=== PATIENT | female | born 1990 | race African-American/Black ===

== ENCOUNTER → 2018-07-30 | Outpatient (CLI) | payer OTHER | LOC: FIMAGING 12:13 | PROVIDERS: ATTEND Advanced Practice Midwife | DX: Z34.02 Encounter for supervision of normal first pregnancy, second trimester (principal); Z3A.19 19 weeks gestation of pregnancy ==

== ENCOUNTER → 2018-08-27 | Outpatient (CLI) | payer OTHER | LOC: FIMAGING 13:22 | PROVIDERS: ATTEND Advanced Practice Midwife | DX: O09.292 Supervision of pregnancy with other poor reproductive or obstetric history, second trimester (principal); Z3A.23 23 weeks gestation of pregnancy ==

== ENCOUNTER 2018-12-21 19:28 | Inpatient (IN) | payer OTHER ==
--- NOTE | 2018-12-21 20:02 | PDGENHP ---
History and Physical History and Physical: Care: [facility] HPI: Sharlene Phoenix is a 28yo with IUP@ 40-2 weeks that presents to L&D from [facility] due to arrest of labor. Her labor started this morning around 0500 0700: admitted to @ 0700: /0 0815: 0 1130: C/C/+1 BBOW 1530: AROM- clear /-1. 1830: /-1 and pt desired [place] to [facility] for augmentation and LANCE. EDC: 12/19/2018 which is based on LMP and consistent with Ultrasound at 10 weeks. Her is complicated by: Rubella equivocal, Vitamin D deficiency Review of Systems: Constitutional: Denies any fever, chills, or fatigue HEENT: denies any visual changes, difficulty swallowing, hearing loss Cardiovascular: Denies any chest pain, palpitations, leg swelling Respiratory: denies any cough, wheezing, or shortness of breathe GI: Denies any nausea, vomiting, diarrhea, constipation; reports +abdominal pain with contractions : denies any dysuria, urgency, frequency, vaginal bleeding Musculoskeletal: denies any muscle or bone pain Skin: denies any rashes Neuro: denies any headache, seizures, lightheadedness, dizziness, or loss of consciousness Psychiatric: denies any depression, anxiety, or SI/HI thoughts HISTORY: Previous OB history: G1 Past medical history: migraines, vitamin D deficiency, rubella equivocal Past surgical history: polyp removal with D&C 2016 Social: Denies any alcohol, tobacco, or drug use. Family history: Not relevant Medications: PNV, vitamin D deficiency Allergies (list reaction): NKDA LABS: Rh: O+ ABS: Neg Rubella: equivocal HbsAg: NR HIV: NR VDRL: NR 1hr: 83 GC: Neg Chlamydia: Neg Pap: Normal GBS: negative PHYSICAL EXAM: Constitutional: WN, A&Ox3 HEENT: normocephalic atraumatic, supple Skin: Warm, dry, intact Heart: RRR, no murmur Chest: CTA-B Abdomen: Soft, nontender, gravid SVE: /-1 Extremities: trace edema, negative homans sign Neuro: grossly normal Psych: normal affect assessment: FHT baseline 135+accels, no decels, moderate variability Contractions: toco q 4-6 Assessment: * 28yo with IUP@ 40-2wks * labor- protracted labor * GBS Negative * Cat 1 FHR tracing Plan: * Admit to L&D * IV access/fluids * LANCE per pt request * Agreeable to augmentation with pitocin Today's visit was approximately 30 min, of which >50% of visit 20 min, was spent face to face with pt on direct counseling/coordination of care.
[2018-12-21] MEDS ORDERED: IBUPROFEN 600 MG TAB PO PRN (20:03)
[2018-12-21] MEDS ORDERED: LR 1,000 ML IV PRN (20:03)
[2018-12-21] MEDS ORDERED: MISOPROSTOL 200 MCG TAB PO PRN (20:03)
[2018-12-21] MEDS ORDERED: OXYTOCIN/RINGERS LACTATE 1,000 ML IV PRN (20:03)
[2018-12-21] MEDS ORDERED: OLIVE OIL 118 ML BTL MISC PRN (20:03)
[2018-12-21] MEDS ORDERED: EPSOM SALT 454 GM TP PRN (20:03)
[2018-12-21] MEDS ORDERED: AMMONIA AROMATIC 1 EACH AMP IH PRN (20:03)
[2018-12-21] MEDS ORDERED: LIDOCAINE 1% 300 MG/30 ML SDV SC PRN (20:03)
[2018-12-21] MEDS ORDERED: TERBUTALINE SULFATE 1 MG/ML VIAL IV PRN (20:03)
[2018-12-21 20:18] LABS: PLATELET COUNT 252 10^3/uL (150-400)
[2018-12-21] MEDS ORDERED: fentaNYL 2MCG/ML/BUP 0.1% RTU 100 ML BAG EP ONE (20:54)
[2018-12-21] MEDS ORDERED: TERBUTALINE SULFATE 1 MG/ML VIAL ONE (21:42)
[2018-12-21] MEDS ORDERED: OLIVE OIL 118 ML BTL ONE (21:42)
[2018-12-21] MEDS ORDERED: LIDOCAINE 1% 300 MG/30 ML SDV ONE (21:42)
[2018-12-21] MEDS ORDERED: MISOPROSTOL 200 MCG TAB ONE (21:42)
[2018-12-21] MEDS ORDERED: OXYTOCIN 10 UNIT/ML VIAL ONE (21:42)
[2018-12-21] MEDS ORDERED: AMMONIA AROMATIC 1 EACH AMP IH ONE (21:42)
[2018-12-21] MEDS ORDERED: NALOXONE HCL 0.4 MG/ML INJ IVP PRN (22:08)
[2018-12-21] MEDS ORDERED: ONDANSETRON 4 MG/2 ML VIAL IVP PRN (22:08)
[2018-12-21] MEDS ORDERED: METOCLOPRAMIDE 10 MG/2 ML VIAL IVP PRN (22:08)
[2018-12-21] MEDS ORDERED: PHENYLEPHRINE HCL 100 MCG/ML SYR IVP PRN (22:08)
--- NOTE | 2018-12-21 22:08 | PREANESOB ---
Obstetric Pre-Anesthesia Info - General Info Proposed Procedure: LANCE : 1 Para: 0 KITTY: 12/19/18 Gestational Age: 40 week(s) and 2 day(s) - Info Status: Full Term Monitors: External FHR Pattern: Reassuring - Labor Status Indications for Labor Analgesia: Pain Control Labor Epidural: Proposed Anesthesia Allergies/Adverse Reactions: Allergy/AdvReac Type Severity Reaction Status Date / Time No Known Allergies Allergy Unverified 12/21/18 20:02 Visit Medications: Generic Name Dose Route Start Last Admin Trade Name Freq PRN Reason Stop Dose Admin Ammonia (Aromatic Spirit) 1 each 12/21/18 20:03 Ammonia Aromatic IH 12/31/18 20:02 ONCE PRN Fainting Lactated Ringer's 1,000 mls @ 0 mls/hr 12/21/18 20:03 12/21/18 20:08 Lr IV 12/22/18 20:02 1,000 mls PRN PRN Administration SEE PROTOCOL CONDITIONS Protocol Per Protocol Oxytocin/Lactated Ringer's 1,000 mls @ 999 mls/hr 12/21/18 20:03 Pitocin 20 Units/Lr (Premix) IV PRN PRN Post bleeding Ibuprofen 600 mg 12/21/18 20:03 Motrin PO ONCE PRN post , pain Lidocaine HCl 300 mg 12/21/18 20:03 Lidocaine Hcl 1% SC 06/19/19 20:02 ONCE PRN episiotomy Magnesium Sulfate 454 gm 12/21/18 20:03 Epsom Salt TP 06/19/19 20:02 Q1H PRN perineal discomfort Misoprostol 800 - 1,000 mcg 12/21/18 20:03 Cytotec PO 06/19/19 20:02 ONCE PRN Vaginal Atony/Bleeding Axton Oil 118 ml 12/21/18 20:03 Sweet Oil MISC 06/19/19 20:02 ONCE PRN perineal massage Terbutaline Sulfate 0.25 mg 12/21/18 20:03 Brethine IV 06/19/19 20:02 ONCE PRN Tachysystole Discontinued Medications Generic Name Dose Route Start Last Admin Trade Name Freq PRN Reason Stop Dose Admin Ammonia (Aromatic Spirit) Confirm 12/21/18 21:42 Ammonia Aromatic Administered 12/21/18 21:43 Dose 1 each IH .STK-MED ONE Fentanyl/Bupivacaine HCl Confirm 12/21/18 20:54 Fentanyl/Bupivacaine/Ns 2 Mcg/Ml 0.1% (Premix Administered 12/21/18 20:55 Dose 100 ml EP .STK-MED ONE Lidocaine HCl Confirm 12/21/18 21:42 Lidocaine Hcl 1% Administered 12/21/18 21:43 Dose 300 mg .ROUTE .STK-MED ONE Misoprostol Confirm 12/21/18 21:42 Cytotec Administered 12/21/18 21:43 Dose 1,000 mcg .ROUTE .STK-MED ONE Axton Oil Confirm 12/21/18 21:42 Sweet Oil Administered 12/21/18 21:43 Dose 118 ml .ROUTE .STK-MED ONE Oxytocin Confirm 12/21/18 21:42 Pitocin Administered 12/21/18 21:43 Dose 40 unit .ROUTE .STK-MED ONE Terbutaline Sulfate Confirm 12/21/18 21:42 Brethine Administered 12/21/18 21:43 Dose 1 mg .ROUTE .STK-MED ONE - Anesthesia History Response to Local Anesthetics: Not Applicable Anesthesia & Operative History: No Prior Problems Family Anesthesia History: Not Applicable - Vital Signs Height/Weight (Nursing): Height 167.64 cm Weight 76.657 kg - Focused Exam Neck exam: FROM Mallampati Score: Class 2 Mouth exam: normal dental/mouth exam Pulmonary: no respiratory distress Cardiovascular: regular rate and rhythym Labs: 12/21/18 20:10 Patient ABO/Rh O POSITIVE 12/21/18 20:10 - Plan Anesthetic Plan: LANCE Consent Signed and on Chart: Yes Patient/Guardian Understands and Agrees to Plan: Yes Urgent/Emergent Case: Carol forman completed preop but documented later for safe timely pt care
--- NOTE | 2018-12-21 22:08 | POSTANESTH ---
Post Anesthetic Evaluation Cardiovascular Status: Normal, Stable Respiratory Status: Normal, Stable Level of Consciousness/Mental Status: Can Participate in Eval, Alert and Oriented Pain Control: Adequate, Prn Tx Ordered Nausea/Vomiting Control: Adequate, Prn Tx Ordered Complications Possibly Related to Anesthesia: None Noted
--- NOTE | 2018-12-21 22:23 | OBPROG ---
Labor Progress Note Assessment/Plan: Assessment: [id number] with IUP@ 40-2wks Active labor GBS Negative MSF Cat 2 FHR Plan: Reassess 1hr/PRN anticipate 12/21/18 22:20 Subjective/Intrapartum Course: 12/21/18 22:23 Sharlene is doing well, she denies any pain, she is comfortable with LANCE. She denies any pressure or desire to push, she states she is very numb and unable to feel anything to push. Sarabjit (BALBIR) is @ BS and supportive. Objective: 12/21/18 20:10 Patient ABO/Rh O POSITIVE 12/21/18 20:10 - SVE Dilation (cm): 10 Effacement (%): 100 Station: +1 Membranes: AROM Amniotic Fluid Color: Meconium Stained - Contraction Pattern Assessment Current Contraction Pattern: Regular - FHR Assessment Mcnulty FHR (bpm): 145 FHR Pattern Variability: Moderate FHR Category: 2 (early decelerations noted) Oxytocin Orders Assessment - Pre-Induction/Augmentation Assessment Gestational Age: 40 week(s) and 2 day(s) ICD10 Worksheet Patient Problems: Problems Problem Status Onset Labor and delivery, indication for care Acute Meconium stained amniotic fluid, delivered, current hospitalization Acute - ICD10 Problem Qualifiers (1) Labor and delivery, indication for care (2) Meconium stained amniotic fluid, delivered, current hospitalization
[2018-12-21] MEDS ORDERED: LR 500 ML IV SCH (22:30)
--- NOTE | 2018-12-22 00:20 | OBDEL ---
Info Type: Vaginal Presentation at Delivery: Vertex L&D Analgesia/Anesthesia Type: Epidural GBS+: No Intrapartum Medications: Generic Name Dose Route Start Last Admin Trade Name Freq PRN Reason Stop Dose Admin Lactated Ringer's 1,000 mls @ 0 mls/hr 12/21/18 20:03 12/21/18 20:08 Lr IV 12/22/18 20:02 1,000 mls PRN PRN Administration SEE PROTOCOL CONDITIONS Protocol Per Protocol Lactated Ringer's 500 mls @ 0 mls/hr 12/21/18 22:30 12/21/18 23:17 Lr IV 06/19/19 22:29 500 mls CONT JERILYN Administration As Directed - Hospital Course Intrapartum: 12/21/18 22:23 Sharlene is doing well, she denies any pain, she is comfortable with LANCE. She denies any pressure or desire to push, she states she is very numb and unable to feel anything to push. Sarabjit (BALBIR) is @ BS and supportive. Indications for Delivery: Spontaneous Labor Vaginal Delivery - Delivery Provider Delivery Physician/CNM: Yue Olmos - Labor and Delivery Onset of Contractions Date: 12/20/18 Onset of Contractions Time: 22:00 Onset of Contractions Type: Spontaneous Rupture of Membranes Date: 12/21/18 Rupture of Membranes Time: 15:48 Rupture of Membranes Type: Artificial Amniotic Fluid Color: Meconium Stained Dilation Complete Date: 12/21/18 Dilation Complete Time: 22:02 Placenta Delivery Date: 12/21/18 Placenta Delivery Time: 23:52 Total Hours of Labor: 25 Laceration: 1st Degree, Other (Specify) (right labial) Repair: 3-0, Vicryl Vaginal Sponge Count Correct: Yes Vaginal Needle Count Correct: Yes Vaginal Sweep Performed: Yes EBL: 200 Delivery Events: None Delivery Comment: delivered while coughing, dad helped bring baby to mothers chest. Data KITTY: 12/19/18 Gestational Age: 40 week(s) and 3 day(s) Mcnulty Delivery Date: 12/21/18 Delivery Time: 23:45 Sex of : Female Score (1 Min): 8 Score (5 Min): 9 ICD10 Worksheet Patient Problems: Problems Problem Status Onset First degree perineal laceration Acute Labor and delivery, indication for care Acute Laceration of labia minora Acute Meconium stained amniotic fluid, delivered, current hospitalization Acute (spontaneous vaginal delivery) Acute - ICD10 Problem Qualifiers (1) Labor and delivery, indication for care (2) Meconium stained amniotic fluid, delivered, current hospitalization (3) (spontaneous vaginal delivery) (4) First degree perineal laceration (5) Laceration of labia minora
[2018-12-22] MEDS ORDERED: SIMETHICONE 80 MG TAB CHEW PO PRN (00:21)
[2018-12-22] MEDS ORDERED: DOCUSATE SODIUM 100 MG CAP PO PRN (00:21)
[2018-12-22] MEDS ORDERED: HYDROCORTISONE 0.5% CREAM TP PRN (00:21)
[2018-12-22] MEDS: ACETAMINOPHEN 325 MG TAB PO PRN ×4 (02:25→22:09)
--- NOTE | 2018-12-22 08:23 | POSTANESTH ---
Post Anesthetic Evaluation Cardiovascular Status: Normal, Stable Respiratory Status: Normal, Stable Level of Consciousness/Mental Status: Can Participate in Eval, Alert and Oriented Pain Control: Adequate, Prn Tx Ordered Nausea/Vomiting Control: Adequate, Prn Tx Ordered Complications Possibly Related to Anesthesia: None Noted (patient did well with LANCE, no issues or adverse effects noted.)
[2018-12-22] MEDS: IBUPROFEN 600 MG TAB PO PRN ×3 (10:10→22:10)
--- NOTE | 2018-12-22 15:38 | OBPP ---
Progress Note Assessment/Plan: Assessment: [id number] s/p PPD #1 Plan: routine PP care support PRN anticipate d/c home tomorrow 12/21/18 22:20 12/22/18 15:33 Subjective/ Course: 12/22/18 15:34 Pt doing well, she denies any pain or heavy bleeding. She states her vagina is a little sore but better since last night. She is ambulating and voiding without difficulty. she is without problems. Sarabjit desires d/c home tomorrow. Objective: 12/21/18 20:10 Patient ABO/Rh O POSITIVE 12/21/18 20:10 Temp Pulse Resp BP Pulse Ox 36.2 C 99 16 109/73 96 12/22/18 03:00 12/22/18 03:00 12/22/18 03:00 12/22/18 03:00 12/22/18 03:00 Uterine Position/Fundal Height: Umbilicus -1, Midline Uterine Tone: Firm
[2018-12-23] MEDS: IBUPROFEN 600 MG TAB PO PRN ×2 (05:14→13:17)
[2018-12-23] MEDS: ACETAMINOPHEN 325 MG TAB PO PRN ×2 (05:15→13:17)
[2018-12-23 09:07] VITALS: BP 111/65
[2018-12-23] MEDS ORDERED: MEASLES,MUMPS&RUBELLA VACC/PF 0.5 ML VIAL SC ONE (09:19)
--- NOTE | 2018-12-23 09:23 | OBGCSDC ---
General Delivery Information - General Info : 1 Para: 0 Abortions: 0 Type: Vaginal L&D Analgesia/Anesthesia Type: Epidural Admission Date: 12/21/18 Labs: Patient ABO/Rh O POSITIVE 12/21/18 20:10 Hct 46.4 % (38.0-47.0) 12/21/18 20:10 - Hospital Course Intrapartum: 12/21/18 22:23 Sharlene is doing well, she denies any pain, she is comfortable with LANCE. She denies any pressure or desire to push, she states she is very numb and unable to feel anything to push. Sarabjit (FOB) is @ BS and supportive. : 12/22/18 15:34 Pt doing well, she denies any pain or heavy bleeding. She states her vagina is a little sore but better since last night. She is ambulating and voiding without difficulty. she is without problems. Sarabjit desires d/c home tomorrow. 12/23/18 09:21 S) Pt doing well, reports min pain and bleeding. she is ambulating and voiding without difficulty. She is . She desires discharge home today. O) VSS, afebrile constitutional: WNF, A&Ox3 HEENT: normocephalic, atraumatic, supple Heart: RRR, No murmur Chest: CTA-B Breasts: soft, nontender, not engorged, nipples intact Abdomen: Soft, nontender Uterus: Firm at U-1 Lochia: Minimal rubra Perineum: healing well Extremities: Trace edema, and negative Mohinder's sign Neuro: Grossly normal A) 28-year-old S/P PPD#2 rubella equivocal P) MMR vaccine today Discharge home today Continue Pelvic rest x6wks Discussed danger signs (infection, preeclampsia, depression, heavy bleeding, etc ) RTO in 2/4/6 weeks 12/23/18 09:22 Vaginal - Delivery Provider Delivery Physician/CNM: Yue Olmos - Diagnosis Labor: Spontaneous Rupture of Membranes Type: Artificial Amniotic Fluid Color: Meconium Stained Laceration: 1st Degree, Other (Specify) (right labial) Repair: 3-0, Vicryl Delivery Events: None - Delivery EBL: 200 [place] Data KITTY: 12/19/18 Gestational Age: 40 week(s) and 4 day(s) Mcnulty Delivery Date: 12/21/18 Delivery Time: 23:45 Sex of Infant: Female [place] Weight (gm): 2565 kg Score (1 Min): 8 Score (5 Min): 9 Discharge Information - Discharge Information Condition: Good
== END 2018-12-23 16:05 | disposition home or self-care (01) | DRG 807 ==
LOC: FLD 19:28 → FOB 12-22 07:18
PROVIDERS: ADMIT Advanced Practice Midwife; ATTEND Advanced Practice Midwife
PROC: 10E0XZZ Delivery of Products of Conception, External Approach (ICD-10-PCS; principal; 2018-12-21)
PROC: 0WQNXZZ Repair Female Perineum, External Approach (ICD-10-PCS; principal; 2018-12-21)
PROC: 10907ZC Drainage of Amniotic Fluid, Therapeutic from Products of Conception, Via Natural or Artificial Opening (ICD-10-PCS; 2018-12-21)
DX: O63.0 Prolonged first stage (of labor) (principal); O70.0 First degree perineal laceration during delivery; O77.0 Labor and delivery complicated by meconium in amniotic fluid; Z3A.40 40 weeks gestation of pregnancy; Z37.0 Single live birth
CPT/HCPCS: J2590; J3105

== ENCOUNTER → 2019-01-02 | Outpatient (CLI) | payer OTHER | LOC: FLACT 14:04 | PROVIDERS: ATTEND Advanced Practice Midwife | DX: Z39.1 Encounter for care and examination of lactating mother (principal) | CPT/HCPCS: G0463 ==